=== PATIENT | female | born 1970 | race Caucasian/White ===

== ENCOUNTER → 2016-05-25 | Outpatient (CLI) | payer OTHER ==
[~2016-05-25] VITALS: Ht 162.6 cm; Wt 66.0 kg
[~2016-05-25] MED LIST: ADVIL,NUPRIN,M200 MG PO; CALCIUM + D3 E1 EACH PO; CLARITIN10 MG PO; DAILY VALUE1 EACH PO; ESTROVEN ENER400 MCG PO; FLONASE16 G1 BOTH NARES; JOINT HEALTH T1 EACH PO; LOTEMAX5 ML BOTH EYES; MEDROL DOSEPAK4 MG PO; OMEGA-31000 M1 PO; OMEPRAZOLE40 M1 PO; PROBIOTIC1 EAC1 PO; SYNTHROID25 MCG PO; ULTRAM50 MG PO; VIBRAMYCIN100 MG PO; VITAMIN C500 M1 PO; ZOLOFT50 MG PO
[2016-05-25 07:12] VITALS: BP 131/65
== END | disposition home or self-care (01) ==
LOC: IVINF 05-19 07:00
PROVIDERS: Internal Medicine Endocrinology, Diabetes & Metabolism
DX: R53.83 Other fatigue (principal); Z88.1 Allergy status to other antibiotic agents; Z88.6 Allergy status to analgesic agent
CPT/HCPCS: 80400; 82024 90; 82533 91; 96374; J0834